=== PATIENT | female | born 1950 | race Caucasian/White ===

== ENCOUNTER 2017-10-12 04:24 | Outpatient (CLI) | payer MEDICARE ==
[~2017-10-12 04:24] MED LIST: BIOT10TA PO; CHOL100062 PO; GABA-532 PO; HYDR-3972 PO; LISI-604 PO; METF500T4 PO
== END 2017-10-12 23:59 | disposition home or self-care (01) ==
LOC: DIABETIC 04:24
PROVIDERS: ATTEND Family Medicine
DX: E11.9 Type 2 diabetes mellitus without complications (principal)
CPT/HCPCS: G0108

== ENCOUNTER 2019-04-06 04:24 | Outpatient (CLI) | payer MEDICARE ==
[~2019-04-06 04:24] MED LIST changes: +METF-436 PO; -METF500T4 PO
== END 2019-04-06 23:59 | disposition home or self-care (01) ==
LOC: DIABETIC 04:24
PROVIDERS: ATTEND Family Medicine
DX: E11.65 Type 2 diabetes mellitus with hyperglycemia (principal); Z79.899 Other long term (current) drug therapy
CPT/HCPCS: G0108

== ENCOUNTER 2019-09-13 18:53 | Emergency (ER) | payer MEDICARE ==
[~2019-09-13] VITALS: Ht 167.6 cm; Wt 83.0 kg
[2019-09-13 18:55] VITALS: BP 137/63
--- NOTE | 2019-09-13 19:14 | NUR ---
spoke to MD after triage re: pts s\s - verbal orders given for labs and vascular study - orders entered. pt updated on plan of care. pt states her PMD wanted her to get a vascular study but it hadn't been completed yet.
[2019-09-13 19:34] LABS: BASOPHILS # (AUTO) 0.2 X10'3 (0-0.2); EOSINOPHILS # (AUTO) 0.2 X10'3 (0-0.9); EOSINOPHILS % (AUTO) 0.8 % (0-6); HEMATOCRIT 39.7 % (35.0-45.0); HEMOGLOBIN 13.5 g/dl (12.0-16.0); LYMPHOCYTES # (AUTO) 6.8 X10'3 (1.1-4.8); LYMPHOCYTES % (AUTO) 34.8 % (21-51); MEAN CORPUSCULAR HEMOGLOBIN 30.6 PG (27.0-31.0); MEAN PLATELET VOLUME 7.3 FL (7.4-10.4); MONOCYTES # (AUTO) 1.6 X10'3 (0-0.9); MONOCYTES % (AUTO) 8.4 % (2-12); NEUTROPHILS # (AUTO) 10.7 X10'3 (1.8-7.7); PLATELET COUNT 441 X10'3 (140-440); RED BLOOD COUNT 4.41 X10'6 (4.20-5.60); RED CELL DISTRIBUTION WIDTH 14.1 % (11.5-14.5); WHITE BLOOD COUNT 19.5 X10'3 (4.5-11.0)
[2019-09-13 19:40] LABS: ALANINE AMINOTRANSFERASE 25 U/L (12-78); ALBUMIN 3.6 G/DL (3.4-5.0); ALBUMIN/GLOBULIN RATIO 1.1 (1.1-1.5); ALKALINE PHOSPHATASE 116 IU/L (46-116); ANION GAP 7 (8-16); ASPARTATE AMINO TRANSFERASE 8 U/L (10-37); BILIRUBIN,TOTAL 0.4 MG/DL (0.1-1.0); BLOOD UREA NITROGEN 21 MG/DL (7-18); BUN/CREATININE RATIO 20.2 (6.6-38.0); CALCIUM 9.6 MG/DL (8.5-10.1); CHLORIDE 104 MMOL/L (99-107); CREATININE 1.04 MG/DL (0.40-0.90); GLUCOSE 189 MG/DL (70-104); POTASSIUM 4.4 MMOL/L (3.5-5.1); SODIUM 139 MMOL/L (135-145); TOTAL PROTEIN 6.9 G/DL (6.4-8.2); eGFR 52 ML/MIN
[2019-09-13 19:44] LABS: D-DIMER 0.41 MG/L FEU (0-0.50); PARTIAL THROMBOPLASTIN TIME 25 SECONDS (22-32)
== END 2019-09-13 21:01 | disposition home or self-care (01) ==
LOC: ER 18:53
DX: M66.0 Rupture of popliteal cyst (principal); Z98.890 Other specified postprocedural states; R79.1 Abnormal coagulation profile; Z88.6 Allergy status to analgesic agent; Z79.84 Long term (current) use of oral hypoglycemic drugs; Z79.899 Other long term (current) drug therapy
CPT/HCPCS: 36415; 80053; 85025; 85379; 85610; 85730; 93971; 99284

== ENCOUNTER 2021-04-18 09:37 | Emergency (ER) | payer MEDICARE ==
[~2021-04-18] VITALS: Ht 167.6 cm; Wt 78.6 kg
[~2021-04-18 09:37] MED LIST changes: -LISI-604 PO; +LISI-790 PO
[2021-04-18 09:43] VITALS: BP 168/61
== END 2021-04-18 14:27 | disposition left against medical advice (07) ==
LOC: ER 09:37
DX: R68.84 Jaw pain (principal); Z53.21 Procedure and treatment not carried out due to patient leaving prior to being seen by health care provider

== ENCOUNTER 2022-07-29 10:29 | Emergency (ER) | payer MEDICARE ==
[~2022-07-29] VITALS: Ht 167.6 cm; Wt 80.0 kg
[~2022-07-29 10:29] MED LIST changes: -LISI-790 PO; +LISI5TAB22 PO
[2022-07-29 10:46] VITALS: BP 158/64
[2022-07-29] MEDS ORDERED: ondansetron/PF 4mg/2ml inj IV ONE (12:05)
[2022-07-29] MEDS ORDERED: morphine 4 MG/ML inj SYRINge IV ONE (12:05)
[2022-07-29] MEDS ORDERED: diazepam inj 5 MG/ML inj. IV ONE (12:05)
[2022-07-29] MEDS ORDERED: ondansetron 4mg rapidly disintigrating tab PO ONE (12:15)
[2022-07-29] MEDS ORDERED: diazepam 5mg tablet PO ONE (12:15)
[2022-07-29] MEDS ORDERED: HYDROcodone/acetaminophen 10/325mg tab PO ONE (12:15)
[2022-07-29] MEDS ORDERED: morphine 4 MG/ML inj SYRINge IM ONE (13:25)
[2022-07-29] MEDS ORDERED: LORazepam 1 MG tablet PO ONE (14:20)
[2022-07-29] MEDS ORDERED: ketorolac tromethamine 15mg/ml inj. IM ONE (14:20)
[2022-07-29] MEDS ORDERED: CYCL-1 PO (15:19)
== END 2022-07-29 15:34 | disposition home or self-care (01) ==
LOC: ER 10:30
DX: M54.2 Cervicalgia (principal); G89.29 Other chronic pain
CPT/HCPCS: 96372; 99284; J1885; J2270

== ENCOUNTER 2022-12-04 08:57 | Emergency (ER) | payer MEDICARE, OTHER ==
[~2022-12-04] VITALS: Ht 167.6 cm; Wt 83.0 kg
[~2022-12-04 08:57] MED LIST changes: +CYCL-1 PO
[2022-12-04 09:11] VITALS: BP 143/66
--- NOTE | 2022-12-04 10:06 | NUR ---
vasculature tech at bedside
== END 2022-12-04 10:41 | disposition home or self-care (01) ==
LOC: ER 08:57
DX: M79.604 Pain in right leg (principal); Z88.6 Allergy status to analgesic agent
CPT/HCPCS: 93971; 99284

== ENCOUNTER 2025-03-25 09:24 | Emergency (ER) | payer MEDICARE, OTHER ==
[~2025-03-25] VITALS: Ht 167.6 cm; Wt 71.0 kg
--- NOTE | 2025-03-25 09:45 | ELECTROCARDIOGRAPH REPORT ---
[facility] Test Date: 2025-03-25 Test Time: 09:43:57 Pat Name: LIUDMILA VILLALTATABITHAVENANCIO Department: [facility] Patient ID: [facility]-[id number] Room: Gender: F [employer]: : 1950 Requested By: HAO BRADFORD Order Number: [id number] Reading MD: Dr. Hao Bradford Measurements Intervals [place] Rate: 70 P: 37 AL: 143 QRS: 72 QRSD: 120 T: 72 QT: 400 QTc: 432 Interpretive Statements Sinus rhythm IVCD, consider atypical RBBB ST elevation, consider inferior injury Electronically Signed On 03-25-2025 12:42:[address] Hao Bradford Please click the below link to view image of tracing.
--- NOTE | 2025-03-25 10:52 | Physician Documentation ---
History of Present Illness ~ Chief Complaint: Chest Wall Pain Stated Complaint: STERNUM PAIN Time Seen by MD: 09:44 OK to notify your PCP?: Yes Primary Medical Doctor: JAY ROBISON Source: patient, RN/ HPI Patient is seen today with complaints of chest wall pain. Patient also complains of pressure in her chest like someone sitting on her chest. Patient states she fell two weeks ago and tripped into her riding lawn more in hit her anterior chest and left inner breast on a handle on the lawnmower. She feels as though it is not really getting any better. She admits to some mild shortness of breath due to pain with respiration. She denies any fevers or chills or abdominal pain or nausea, vomiting, diarrhea. She has no other concern or complaint at this time. Tetanus within 5 Years?: Yes Allergies: Coded Allergies: aspirin (Verified Allergy, Unknown, 12/14/16) Active Prescriptions See Medication Reconciliation Form. Medication Reconciliation Scheduled Biotin (Biotin), 10 MG PO DAILY, (Reported) Cholecalciferol (Vitamin D3) (Vitamin D3), 1,000 UNIT PO DAILY, (Reported) Cyclobenzaprine* (Cyclobenzaprine*), 1 TAB PO Q8H Gabapentin (Gabapentin), 1-2 CAP PO Q8H, (Reported) Lisinopril (Lisinopril), 1 TAB PO DAILY, (Reported) Metformin Hcl (Metformin Hcl), 2 TAB PO Q12H, (Reported) Scheduled PRN Hydrocodone Bit/Acetaminophen (Hydrocodon-Acetaminophn 10-325 tablet), 0.5-1 TAB PO TID PRN PRN for pain, (Reported) Hydrocodone Bit/Acetaminophen (Hydrocodone-Apap 10-325 Tablet), 1 TAB PO BID PRN for pain Past Medical History Past Medical History: Chronic Pain Past Surgical History: orthopedic surgeries Other Past Surgical History: ACL replacement Patient History: (COPD) Chronic obstructive lung disease MOTHER ( AGE 73) ([place]) Myocardial infarction FATHER ( AGE 60 [place] / ANXIETY) Alcohol Use: None Drug Use: none Lives In: Home Review of Systems Constitutional: Denies: chills, fever, weakness Eyes: Denies: pain, blurred vision ENT: Denies: ear pain, nose pain, throat pain, mouth pain Respiratory: Denies: cough, shortness of breath Cardiovascular: Denies: chest pain, palpitations Gastrointestinal: Denies: abdominal pain, nausea, vomiting Genitourinary: Denies: burning, dysuria Female Genitalia: Denies: vaginal discharge, pelvic pain Neurological: Denies: headache, dizziness Musculoskeletal: Denies: pain, swelling Integumentary: Denies: rash, lesions Allergic/Immunologic: Denies: hives, itching Hematologic/Lymphatic: Denies: no symptoms reported Psychiatric: Denies: depression, anxiety Physical Exam Vital Signs: Temperature: 98.4, Source: Temporal, Heart Rate: 78, Respiratory Rate: 16, BP: 147/57, Pulse Oximetry: 98, Weight: 71.000 Oxygen Flow Rate: 0 Physical Exam General: Awake and Alert, no acute distress. HEENT: Conjunctiva pink, Sclera clear, Mucus Membranes moist. Neck: Supple without masses and tenderness. Resp: Unlabored. Lungs clear to auscultation bilaterally. Heart: Regular Rate and rhythm, normal S1 and S2 without murmur, rub or gallop. Chest: On exam patient does have ecchymosis of the left inner breast. Patient has significant tenderness to palpation of the lower anterior sternum with even mild palpation Abdomen: Soft and non tender no organomegaly Extremities: No cyanosis,clubbing or edema. Skin: Warm and Dry. Progress Results/Orders Results/Orders Orders - EDWIN SHARIF PAC [place] Ribs With [facility] Chest (03/25/25 09:58) Hs Troponin I W Calculations (03/25/25 12:51) Completed Orders - EDWIN SHARIF PAC [place] Ribs With Pa Chest (03/25/25 09:58) Cbc/Diff (03/25/25 10:51) BMP (03/25/25 10:51) Hs Troponin I W Calculations (03/25/25 10:51) Vital Signs 03/25/25 03/25/25 09:26 12:07 Temp 98.4 98.4 Pulse 78 78 Resp 16 18 B/P (MAP) 147/57 134/86 Pulse Ox 98 98 O2 Flow Rate 0 Laboratory Tests Test 03/25/25 11:22 White Blood Count 11.0 Red Blood Count 4.51 Hemoglobin 13.2 Hematocrit 40.1 Mean Corpuscular Volume 89.0 Mean Corpuscular Hemoglobin 29.2 Mean Corpuscular Hemoglobin Concent 32.9 L Red Cell Distribution Width 13.9 Platelet Count 322 Mean Platelet Volume 7.7 Neutrophils (%) (Auto) 43.8 Lymphocytes (%) (Auto) 46.1 Monocytes (%) (Auto) 8.5 Eosinophils (%) (Auto) 1.1 Basophils (%) (Auto) 0.5 Neutrophils # (Auto) 4.8 Lymphocytes # (Auto) 5.1 H Monocytes # (Auto) 0.9 Eosinophils # (Auto) 0.1 Basophils # (Auto) 0.1 CBC Comment Sodium Level 139 Potassium Level 4.3 Chloride Level 102 Carbon Dioxide Level 30.7 Anion Gap 6 L Blood Urea Nitrogen 14 Creatinine 0.69 Estimated GFR/1.73 m2 83 BUN/Creatinine Ratio 20.3 H Glucose Level 236 H Calcium Level 9.7 Troponin I High Sensitivity < 4 L Troponin I High Sens Percent Delta Troponin I Hi Sens Absolute Change Albumin 3.6 Chemistry Comments EKG/XRAY/CT/US/VASC/MRI EKG : Additional Comment EKG interpreted by myself today shows regular rate at 71 beats per minute, normal sinus rhythm, no sign of ST segment elevation or ischemic changes and no axis deviation. Heart Score: Heart Score Response (Comments) Value History Slightly Suspicious 0 EKG Normal 0 Age >65 2 Risk Factors No known risk factors 0 Troponin Normal limit 0 Total 2 Medical Decision Making Findings Patient is seen today with complaints of chest wall pain. Patient also complains of pressure in her chest like someone sitting on her chest. Patient states she fell two weeks ago and tripped into her riding lawn more in hit her anterior chest and left inner breast on a handle on the lawnmower. She feels as though it is not really getting any better. She admits to some mild shortness of breath due to pain with respiration. She denies any fevers or chills or abdominal pain or nausea, vomiting, diarrhea. She has no other concern or complaint at this time. Chest x-ray and rib series were unremarkable, was unable to visualize any rib or sternal fracture on exam. Patient did have labs that were reassuring with normal troponin level. Patient has a low heart score at two. Patient was given prescription for [place] 10/325 mg one tab twice a day for 10 days to be taken as directed only as needed only. Patient will follow up with primary care in 10-14 days if no better as needed sooner. Patient will continue deep breathing exercise. She will return to ED with any worsening, concerning or changing symptoms. Departure Disposition: 01 HOME / SELF CARE / HOMELESS Impression: Primary Impression: Chest wall pain Discharge Instructions: Chest Wall Pain Additional Instructions: Patient was given prescription for [place] 10/325 mg one tab twice a day for 10 days to be taken as directed only as needed only. Patient will follow up with primary care in 10-14 days if no better as needed sooner. Patient will continue deep breathing exercise. She will return to ED with any worsening, concerning or changing symptoms. Referrals: NO PRIMARY CARE PROVIDER (PCP) Prescriptions Hydrocodone Bit/Acetaminophen (Hydrocodone-Apap 10-325 Tablet) 10mg/325mg Tablet 1 TAB PO BID PRN for pain for 10 Days, #20 TAB Prov: EDWIN SHARIF 03/25/25 Signature Scribe Signature: No scribe Attestation: No scribe EDWIN SHARIF Mar 25, 2025 10:52
[2025-03-25] MEDS ORDERED: HYDR-3973 PO (11:08)
[2025-03-25 11:38] LABS: MEAN PLATELET VOLUME 7.7 FL (7.4-10.4); RED CELL DISTRIBUTION WIDTH 13.9 % (11.5-14.5)
[2025-03-25 11:45] LABS: CREATININE 0.69 MG/DL (0.40-0.90); TOTAL CARBON DIOXIDE 30.7 MMOL/L (24-32); eCRCL 65 ML/MIN; eGFR 83 ML/MIN
[2025-03-25 12:07] VITALS: BP 134/86; PULSE 78; RESP 18; TEMP 98.4; O2SAT 98
--- NOTE | 2025-03-25 18:49 | RADIOLOGY REPORT ---
CHEST RADIOGRAPH Indication: sternum pain and rib pain after fall Technique: Single frontal view of the chest was obtained Comparison: None FINDINGS: Lines and Tubes: None Lungs: No focal consolidation. Pleura: No effusion. No pneumothorax. Cardiomediastinal contours: Unremarkable Bones: No acute osseous abnormality. Cervical fixation hardware is noted. IMPRESSION: No acute cardiopulmonary disease. No acute rib fractures are noted.
== END 2025-03-25 12:32 | disposition home or self-care (01) ==
LOC: ER 09:25
DX: R07.89 Other chest pain (principal); J44.9 Chronic obstructive pulmonary disease, unspecified; Z88.6 Allergy status to analgesic agent
CPT/HCPCS: 36415; 71111; 80048; 84484; 85025; 93005; 99285